=== PATIENT | female | born 1990 | race Caucasian/White ===

== ENCOUNTER → 2020-02-22 05:08 | Observation (INO) | END | disposition home or self-care (01) | LOC: 1NENULAB | PROVIDERS: ADMIT Registered Nurse; ATTEND Registered Nurse ==

== ENCOUNTER 2020-02-29 04:11 | Inpatient (IN) ==
[2020-02-29] MEDS ORDERED: Famotidine 20 MG/2 ML VIAL IVP PRN (04:15)
[2020-02-29] MEDS ORDERED: Ondansetron 4 MG/2 ML VIAL IVP PRN (04:15)
[2020-02-29] MEDS ORDERED: Naloxone 0.4 MG/ML INJ IVP PRN (04:15)
[2020-02-29] MEDS ORDERED: Lidocaine 1% 20 ML MDV INFILT PRN (04:15)
[2020-02-29] MEDS ORDERED: Ringers Solution, Lactated 1,000 ML IVC SCH (04:15)
[2020-02-29] MEDS ORDERED: *HR* FentaNYL (PF) 100 MCG/2 ML VIAL IVP PRN (04:15)
[2020-02-29] MEDS ORDERED: Metoclopramide 10 MG/2 ML VIAL IVP PRN (04:15)
[2020-02-29] MEDS ORDERED: Oxytocin 20 units/ LR 1000 mL 20 UNIT/1,000 ML BAG IVC SCH (04:30)
[2020-02-29 05:10] LABS: Basophils # 0.1 K/mcL (0.0-0.2); Basophils % 0.5 %; Eosinophils # 0.1 K/mcL (0.0-0.6); Eosinophils % 0.7 %; Hemoglobin 11.5 g/dL (11.5-15.4); Immature Granulocytes % 0.7 % (0-4); Lymphocytes # 1.7 K/mcL (0.6-4.6); Lymphocytes % 17.3 %; Mean Corpuscular HGB Conc 31.9 g/dL (31.6-35.5); Mean Corpuscular Hemoglobin 27.8 pg (28.0-33.3); Mean Corpuscular Volume 87.2 fL (83.0-100.0); Mean Platelet Volume 10.5 fL (9.4-12.4); Monocytes # 0.7 K/mcL (0.0-1.3); Monocytes % 6.7 %; Neutrophils # 7.3 K/mcL (1.6-8.9); Platelet Count 228 K/mcL (140-400); Red Blood Count 4.13 M/mcL (3.82-4.97); Red Cell Distribution Width 15.4 % (11.5-14.5); Segmented Neutrophils % 74.1 %; White Blood Count 9.9 K/mcL (4.3-11.1)
[2020-02-29] MEDS ORDERED: EPHEDrine 50 MG/ML VIAL IVP PRN (05:55)
[2020-02-29] MEDS ORDERED: Ropivacaine/PF 0.2% 20 ML VIAL EP ONE (05:55)
[2020-02-29] MEDS ORDERED: *HR* FentaNYL (PF) 100 MCG/2 ML VIAL EP ONE (05:55)
[2020-02-29] MEDS ORDERED: Epidural Premix (fent/bupiv) 110 ML EP SCH (06:00)
[2020-02-29] MEDS ORDERED: Epidural Premix (fent/bupiv) 0 ML EP ONE (06:01)
[2020-02-29 06:21] LABS: Amphetamine Screen,Urine Negative ng/mL (Cutoff=1000); Barbiturate Screen,Urine Negative ng/mL (Cutoff=200); Benzodiazepines Screen,Urine Negative ng/mL (Cutoff=300); Cannabinoid Screen,Urine Negative ng/mL (Cutoff = 50); Cocaine Screen,Urine Negative ng/mL (Cutoff= 300); Opiate Screen,Urine Negative ng/mL (Cutoff=300); Phencyclidine Screen,Urine Negative ng/mL (Cutoff=25)
[2020-02-29] MEDS ORDERED: Measles/Mumps/Rubella Vacc 0.5 ML VIAL SQ PRN (10:54)
[2020-02-29] MEDS ORDERED: Lanolin 7 G OINT...G. TP PRN (10:54)
[2020-02-29] MEDS ORDERED: Acetaminophen 325 MG TABLET PO PRN (10:54)
[2020-02-29] MEDS ORDERED: [UNRECOGNIZED DRUG - OTHER] PO SCH (10:54)
[2020-02-29] MEDS ORDERED: Benzocaine/Menthol 56 GM AEROSOL SPRAY TP PRN (10:54)
[2020-02-29] MEDS ORDERED: *HR* HYDROcodone/Acet 5/325 mg TABLET PO PRN (10:54)
[2020-02-29] MEDS ORDERED: FISH OIL E PO SCH (10:54)
[2020-02-29] MEDS ORDERED: DHA PO SCH (10:54)
[2020-02-29] MEDS ORDERED: OMEGA3 PO SCH (10:54)
[2020-02-29] MEDS: Prenatal Vit/FA 1 EACH TABLET PO SCH (15:19)
[2020-02-29] MEDS: Oxytocin 20 units/ LR 1000 mL 20 UNIT/1,000 ML BAG IVC SCH ×2 (15:19→18:57)
[2020-02-29] MEDS: Ibuprofen 600 MG TABLET PO PRN (17:31)
[2020-03-01 07:51] VITALS: BP 95/64
[2020-03-01] MEDS: Prenatal Vit/FA 1 EACH TABLET PO SCH (08:42)
[2020-03-01] MEDS: Ibuprofen 600 MG TABLET PO PRN (08:42)
== END 2020-03-01 14:00 | disposition home or self-care (01) | DRG 807 ==
LOC: 1NENULAB → 1NENUOBS 12:15
PROVIDERS: ADMIT Advanced Practice Midwife; ATTEND Advanced Practice Midwife